=== PATIENT | male | born 2005 | race Caucasian/White ===

== ENCOUNTER 2024-09-07 17:11 | Emergency (ER) | payer OTHER ==
[~2024-09-07] VITALS: Ht 185.4 cm; Wt 94.9 kg
[2024-09-07 17:16] VITALS: TEMP 97.9; O2SAT 100
[2024-09-07 17:17] VITALS: BP 160/110
[2024-09-07] MEDS: FLUORESCEIN OPHTH 1MG STRIP OD ONE (17:30)
[2024-09-07] MEDS: PROPARACAINE 0.5% OPHTH SOL 15ML OD ONE (17:30)
[2024-09-07] MEDS ORDERED: BACI500O8 TOP (17:44)
[2024-09-07] MEDS: BACITRACIN OINTMENT 30GM TUBE TOP ONE (17:51)
== END 2024-09-07 17:56 | disposition home or self-care (01) ==
LOC: M ED 17:11
DX: T26.01XA Burn of right eyelid and periocular area, initial encounter (principal); Z91.09 Other allergy status, other than to drugs and biological substances; Z79.2 Long term (current) use of antibiotics; Y92.9 Unspecified place or not applicable; Y93.9 Activity, unspecified; Y99.1 Military activity

== ENCOUNTER 2025-01-13 16:54 | Emergency (ER) | payer OTHER ==
[~2025-01-13] VITALS: Ht 182.9 cm; Wt 101.0 kg
[~2025-01-13 16:54] MED LIST: BACI500O8 TOP
[2025-01-13 20:21] VITALS: BP 145/86; TEMP 98.3; O2SAT 99
[2025-01-13] MEDS: KETOROLAC 30 MG/ML 1ML VIAL IM ONE (20:45)
[2025-01-13] MEDS ORDERED: METH-1165 PO (20:53)
== END 2025-01-13 21:01 | disposition home or self-care (01) ==
LOC: M ED 16:54
DX: M54.42 Lumbago with sciatica, left side (principal)
CPT/HCPCS: 96372; 99283; J1885